=== PATIENT | female | born 1990 | race Two or more races ===

== ENCOUNTER 2016-08-08 10:48 | Emergency (ER) | payer OTHER, MEDICAID ==
[2016-08-08 11:02] VITALS: BP 114/86; PULSE 66; RESP 16; TEMP 97.3; O2SAT 97
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
== END 2016-08-08 11:27 | disposition home or self-care (01) ==
LOC: CED 10:48
DX: M62.830 Muscle spasm of back (principal); M62.838 Other muscle spasm
CPT/HCPCS: 99214-PO; G0463-PO

== ENCOUNTER 2017-09-23 13:33 | Emergency (ER) | payer MEDICAID ==
[2017-09-23 13:43] VITALS: BP 113/77; PULSE 80; RESP 18; TEMP 97.9; O2SAT 94
--- NOTE | 2017-09-23 13:57 | EDPHY ---
H & P Time Seen by Provider: 09/23/17 13:40 HPI/ROS: CHIEF COMPLAINT: Rash History by patient HISTORY OF PRESENT ILLNESS: 27-year-old otherwise healthy woman presents complaining of itchy lesions over her trunk back and limbs. Patient had a upper respiratory infection with fever several days ago and the 2nd day after the fever she noticed itchy lesions on her chest and back. She said that they seem to be full small amount of clear fluid which has drained from a few than. Some have spread to her arms and legs subsequently. The fever has subsided and she now otherwise feeling well. There is no headache, nausea, vomiting or persistent fever. Her sister had a similar febrile illness but did not developed a rash. No one else in the house has similar lesions. She tried putting some aloe vera on them without relief. Lesions are not painful just itchy. These she denies any lesions in her mouth or vaginal area. REVIEW OF SYSTEMS: As in HPI, and all other systems reviewed and are negative Smoking Status: Current some day smoker Physical Exam: General Appearance: Alert and no distress. Head: Normocephalic, atraumatic Eyes: Pupils equal and round no injection. Extraocular movements are intact. Oropharynx: Clear without lesions or erythema Neck: No cervical or submandibular adenopathy, no supraclavicular adenopathy Cor: Regular rate and rhythm, S1-S2 with no murmurs gallops rubs appreciated Lungs: Normal respiratory effort with no wheezes, rales, rhonchi Musculoskeletal: Neck is supple and nontender. Extremities: Full range of motion without tenderness or deformity. Skin: Positive red 5 mm papular vesicular lesions on trunk, back and a few scattered on upper arm and upper leg, palms and fold spared, mucous membranes., No purulence Constitutional: Initial Vital Signs Temperature (C) 36.6 C 09/23/17 13:39 Heart Rate 80 09/23/17 13:39 Respiratory Rate 18 09/23/17 13:39 Blood Pressure 113/77 09/23/17 13:39 O2 Sat (%) 94 09/23/17 13:39 O2 Delivery Mode Room Air Allergies/Adverse Reactions: No Known Allergies Allergy (Verified 09/23/17 13:38) Home Medications: Medication Instructions Recorded NK [No Known Home Meds] 09/23/17 MDM/Departure - [facility] ED Course/Re-evaluation: 27-year-old woman presents with vesicular rash after febrile illness without evidence of systemic toxicity or mucous membrane involvement. We will treat her symptomatically with cetirizine for itching as well as topical calamine lotion or Aveeno baths. We discussed return precautions. I am recommending follow up with her primary care physician or critical power install technician if lesions persist. - Depart Disposition: Home, Routine, Self-Care Clinical Impression: Rash Condition: Good Instructions: Cetirizine (By mouth), Viral Exanthem (ED) Additional Instructions: You were seen by Dr. Nedra Guillaume today. You may try cetirizine 10 mg once a day for itching. Try chamomile lotion on the lesions. Try soaking in Aveeno oatmeal baths for the itching. Wear long sleeves and gloves while working. Return for any worsening or new concerns including but not limited to fever or other new symptoms. If the rash does not clear up in another 5 days please follow up with her primary care physician or critical power install technician.. Referrals: Leila Dias NP [Primary Care Provider] - As per Instructions
== END 2017-09-23 14:05 | disposition home or self-care (01) ==
LOC: CED 13:33
DX: R21 Rash and other nonspecific skin eruption (principal); F17.200 Nicotine dependence, unspecified, uncomplicated